=== PATIENT | female | born 1970 | race African-American/Black ===

== ENCOUNTER → 2017-09-07 | Outpatient (CLI) | payer OTHER ==
[~2017-09-07] MED LIST: ADDERALL 20 MG20 MG PO; ADIPEX-P37.5 MG PO; GABAPENTIN 100100 MG PO; TECFIDERA240 MG PO; TOPAMAX 25 MG T25 M1 PO; UNICOMPLEX M TA1 TA1 PO; VITAMIN D5000 UNIT PO
[2017-09-07 09:07] LABS: ABSOLUTE BASOPHILS 0.1 thou/uL (0.0-0.2); ABSOLUTE EOSINOPHILS 0.1 thou/uL (0.0-0.7); ABSOLUTE LYMPHOCYTES 2.4 thou/uL (0.8-5.3); ABSOLUTE MONOCYTES 0.6 thou/uL (0.0-1.2); BASOPHILS 0.7 %; EOSINOPHILS 1.2 %; HEMATOCRIT 38.7 % (37.0-47.0); HEMOGLOBIN 12.7 gm/dL (12.0-15.0); LYMPHOCYTES 29.3 %; MCH 26.6 pg (26.0-34.0); MCHC 32.8 g/dL (28.0-37.0); MCV 81.3 fL (80.0-100.0); MONOCYTES 6.9 %; MPV 9.2 fl. (7.2-11.1); NUCLEATED RBCS 0 /100WBC; PLATELET COUNT* 268 thou/uL (150-400); POLYS 61.9 %; RBC 4.76 mil/uL (4.20-5.00); RDW-CV 15.9 % (10.5-14.5); WBC 8.1 thou/uL (4.0-11.0)
[2017-09-07 09:18] LABS: APTT 27.8 Seconds (25.0-31.3); INR 1.1; PROTIME 10.7 Seconds (9.20-11.50)
[2017-09-07 10:23] LABS: ESR (SEDRATE) 19 mm/hr (0-20)
[2017-09-07 11:13] LABS: CSF GLUCOSE 60 mg/dl (40-70); CSF PROTEIN 61.2 mg/dl (15-45)
[2017-09-07 11:18] VITALS: BP 123/68
[2017-09-07 11:21] LABS: CSF CLARITY CLEAR; CSF COLOR COLORLESS; CSF RBC 12 /mm3; CSF WBC 1 /mm3 (0-10); VOLUME 8 ml
[2017-09-07 11:26] VITALS: BP 123/68
[2017-09-07 11:51] VITALS: BP 131/77
[2017-09-07 12:02] VITALS: BP 127/60
[2017-09-07 12:32] VITALS: BP 126/48
[2017-09-09 09:09] LABS: ANA INTERPRETATION Negative (Negative)
[2017-09-09 15:12] LABS: CSF ALBUMIN 31 mg/dL (11-48); CSF IGG INDEX 1.5 (0.0-0.7); CSF/SERUM ALBUMIN INDEX 8 (0-8)
== END | disposition home or self-care (01) ==
LOC: M.LAB 09-02 08:40 → M.RAD 09-04 09:00 → M.LAB 08:00 → M.RAD 08:17
PROVIDERS: Psychiatry & Neurology Neuromuscular Medicine
DX: G35 Multiple sclerosis (principal); Z79.899 Other long term (current) drug therapy

== ENCOUNTER → 2018-11-15 | Outpatient (CLI) | payer OTHER ==
[2018-11-15 11:59] LABS: ABSOLUTE BASOPHILS 0.1 thou/uL (0.0-0.2); ABSOLUTE EOSINOPHILS 0.1 thou/uL (0.0-0.7); ABSOLUTE LYMPHOCYTES 2.7 thou/uL (0.8-5.3); ABSOLUTE MONOCYTES 0.7 thou/uL (0.0-1.2); ABSOLUTE NEUTROPHILS 4.5 thou/uL (1.6-8.1); BASOPHILS 0.9 %; HEMATOCRIT 38.7 % (37.0-47.0); HEMOGLOBIN 12.7 gm/dL (12.0-15.0); LYMPHOCYTES 33.3 %; MCH 26.8 pg (26.0-34.0); MCHC 32.8 g/dL (28.0-37.0); MCV 81.8 fL (80.0-100.0); MONOCYTES 8.6 %; MPV 8.1 fl. (7.2-11.1); NUCLEATED RBCS 0 /100WBC; PLATELET COUNT* 345 thou/uL (150-400); POLYS 56.2 %; RBC 4.73 mil/uL (4.20-5.00); RDW-CV 15.5 % (10.5-14.5); WBC 8.1 thou/uL (4.0-11.0)
[2018-11-15 12:43] LABS: ALBUMIN 3.4 g/dL (3.4-5.0); CALCIUM 9.1 mg/dL (8.5-10.1); POTASSIUM 4.7 mmol/L (3.5-5.1); TOTAL BILIRUBIN 0.4 mg/dL (<0.1-1.0); TOTAL PROTEIN 7.2 g/dL (6.4-8.2)
== END ==
LOC: M.LAB 11:31
PROVIDERS: Psychiatry & Neurology Neuromuscular Medicine
DX: G35 Multiple sclerosis (principal)

== ENCOUNTER → 2019-04-11 | Outpatient (CLI) | payer OTHER ==
[2019-04-11 09:58] LABS: ABSOLUTE EOSINOPHILS 0.1 thou/uL (0.0-0.7); ABSOLUTE LYMPHOCYTES 2.5 thou/uL (0.8-5.3); ABSOLUTE MONOCYTES 0.6 thou/uL (0.0-1.2); ABSOLUTE NEUTROPHILS 4.3 thou/uL (1.6-8.1); BASOPHILS 0.4 %; EOSINOPHILS 1.2 %; HEMATOCRIT 42.1 % (37.0-47.0); HEMOGLOBIN 13.7 gm/dL (12.0-15.0); MCH 26.6 pg (26.0-34.0); MCHC 32.5 g/dL (28.0-37.0); MCV 81.9 fL (80.0-100.0); MONOCYTES 7.5 %; MPV 9.1 fl. (7.2-11.1); NUCLEATED RBCS 0 /100WBC; PLATELET COUNT* 275 thou/uL (150-400); POLYS 57.9 %; RBC 5.14 mil/uL (4.20-5.00); RDW-CV 15.6 % (10.5-14.5); WBC 7.5 thou/uL (4.0-11.0)
[2019-04-11 10:31] LABS: ALBUMIN 3.6 g/dL (3.4-5.0); CALCIUM 9.2 mg/dL (8.5-10.1); CREATININE 0.9 mg/dL (0.6-1.3); POTASSIUM 3.7 mmol/L (3.5-5.1); TOTAL BILIRUBIN 0.3 mg/dL (<0.1-1.0); TOTAL PROTEIN 7.8 g/dL (6.4-8.2)
[2019-04-11 23:06] LABS: TESTOSTERONE 25 ng/dL (8-48); THYROID PEROXIDASE (TPO) AB 9 IU/mL (0-34)
[2019-04-12 14:09] LABS: ANA INTERPRETATION Negative (Negative)
== END ==
LOC: M.LAB 09:29
PROVIDERS: Psychiatry & Neurology Neuromuscular Medicine
DX: G35 Multiple sclerosis (principal); R53.83 Other fatigue; N95.1 Menopausal and female climacteric states; E34.9 Endocrine disorder, unspecified; E07.89 Other specified disorders of thyroid; E75.5 Other lipid storage disorders

== ENCOUNTER 2019-07-01 16:17 | Emergency (ER) | payer OTHER ==
[~2019-07-01] VITALS: Ht 175.3 cm; Wt 79.4 kg
[2019-07-01] MEDS ORDERED: LEVO-T75 MCG PO (16:33)
[2019-07-01] MEDS ORDERED: NORCO 5-325 TA1 EAC1 PO (18:21)
[2019-07-01 18:50] VITALS: BP 120/47
== END 2019-07-01 18:52 | disposition home or self-care (01) ==
LOC: M.ERS 16:17
DX: M25.561 Pain in right knee (principal); M25.571 Pain in right ankle and joints of right foot; Z98.51 Tubal ligation status

== ENCOUNTER → 2021-02-04 | Outpatient (CLI) | payer OTHER ==
[~2021-02-04] MED LIST changes: +LEVO-T75 MCG PO; +NORCO 5-325 TA1 EAC1 PO
[2021-02-04 08:53] LABS: ABSOLUTE BASOPHILS 0.1 thou/uL (0.0-0.2); ABSOLUTE EOSINOPHILS 0.3 thou/uL (0.0-0.7); ABSOLUTE LYMPHOCYTES 3.1 thou/uL (0.8-5.3); ABSOLUTE MONOCYTES 0.8 thou/uL (0.0-1.2); BASOPHILS 0.8 %; EOSINOPHILS 3.5 %; HEMATOCRIT 35.9 % (37.0-47.0); HEMOGLOBIN 11.9 gm/dL (12.0-15.0); LYMPHOCYTES 33.8 %; MCH 26.5 pg (26.0-34.0); MCHC 33.2 g/dL (28.0-37.0); MCV 79.7 fL (80.0-100.0); MONOCYTES 8.4 %; MPV 8.2 fl. (7.2-11.1); NUCLEATED RBCS 0 /100WBC; PLATELET COUNT* 345 thou/uL (150-400); POLYS 53.5 %; RBC 4.51 mil/uL (4.20-5.00); WBC 9.3 thou/uL (4.0-11.0)
[2021-02-04 09:07] LABS: ALBUMIN 3.1 g/dL (3.4-5.0); CALCIUM 8.6 mg/dL (8.5-10.1); CREATININE 0.8 mg/dL (0.6-1.3); POTASSIUM 3.9 mmol/L (3.5-5.1); TOTAL BILIRUBIN 0.4 mg/dL (<0.1-1.0); TOTAL PROTEIN 7.7 g/dL (6.4-8.2)
== END ==
LOC: M.LAB 08:37
PROVIDERS: ATTEND Psychiatry & Neurology Neuromuscular Medicine
DX: G35 Multiple sclerosis (principal)